=== PATIENT | female | born 1965 | race Caucasian/White ===

== ENCOUNTER 2018-03-24 06:02 | Inpatient (IN) | payer BC ==
[2018-03-22 11:47] VITALS: BMI 31.6
[2018-03-24] MEDS ORDERED: oxyCODONE HCL 10 MG SUSTAINED ACTING TABLET PO STA (06:29)
[2018-03-24] MEDS ORDERED: CEFAZOLIN 2 GM in DEXTROSE 5%-WATER - 100 ML IVPB ONE (06:29)
[2018-03-24] MEDS ORDERED: LIDOCAINE 1%/EPI 1:100000 (20 ML MULTI DOSE VIAL) ONE (06:50)
[2018-03-24] MEDS ORDERED: THROMBIN (BOVINE) 5,000 UNIT VIAL TP ONE ×3 (07:00→09:15)
[2018-03-24] MEDS ORDERED: GABAPENTIN 300 MG CAPSULE (FP) PO ONE (07:00)
--- NOTE | 2018-03-24 07:14 | HP ---
History & Physical Update - History History: No Change - Physical Physical: No Change - Assessment Assessment: No Change - Plan Plan: No Change (Initial H&P is in her paper chart. No new medications or complaints. Here today for elective L5/S1 TLIF.)
[2018-03-24] MEDS ORDERED: PROPOFOL 20 ML ONE (07:38)
[2018-03-24] MEDS ORDERED: SUCCINYLCHOLINE CHLORIDE 200 MG/10 ML VIAL ONE (07:38)
[2018-03-24] MEDS ORDERED: ONDANSETRON 4 MG/2 ML VIAL ONE (07:54)
[2018-03-24] MEDS ORDERED: DEXAMETHASONE SOD PHOSPHATE 4 MG/1 ML VIAL ONE ×2 (07:54→12:04)
[2018-03-24] MEDS ORDERED: ONDANSETRON 4 MG/2 ML VIAL IVPUSH PRN ×2 (09:45→09:53)
[2018-03-24] MEDS ORDERED: oxyCODONE HCL 5 MG TABLET PO PRN ×4 (09:45→09:53)
[2018-03-24] MEDS ORDERED: LACTATED RINGERS SOLUTION 1,000 ML IV SCH (09:45)
[2018-03-24] MEDS ORDERED: ACETAMINOPHEN 1000 MG/100 ML VIAL (NON FORMULARY) IVPB PRN (09:45)
[2018-03-24] MEDS ORDERED: ACETAMINOPHEN 325 MG TABLET (FP) PO SCH (09:45)
[2018-03-24] MEDS ORDERED: DICLOFENAC POTASSIUM PO PRN (09:49)
[2018-03-24] MEDS ORDERED: PROMETHAZINE HCL 25 MG/1 ML VIAL IVPUSH PRN (09:53)
--- NOTE | 2018-03-24 09:57 | OP ---
Operative Note - Note: Operative Date: 03/24/18 Pre-Operative Diagnosis: L5/S1 spondylolithesis with radiculopathy Operation: L5/S1 TLIF Post-Operative Diagnosis: Same as Pre-op Surgeon: Atilio Carias Soda Fountain Manager: Pieter Wood Anesthesiologist/FLAT BED KNITTER: Kristin Puentes Anesthesia: Spinal Estimated Blood Loss (mls): 25 Fluid Volume Replaced (mls): 550 Operative Report Dictated: Yes
[2018-03-24] MEDS ORDERED: FOLIC ACID 1 MG TABLET (FP) PO SCH (10:00)
[2018-03-24] MEDS ORDERED: MECLIZINE HCL 25 MG TABLET (FP) PO SCH (10:00)
[2018-03-24] MEDS ORDERED: GABAPENTIN 300 MG CAPSULE (FP) PO SCH ×2 (10:00→18:00)
[2018-03-24] MEDS ORDERED: CYANOCOBALAMIN (VITAMIN B-12) 100 MCG TABLET PO SCH (10:00)
--- NOTE | 2018-03-24 10:00 | SURG ---
Surgery Communications Representative Note Communications Representative: Pieter Wood PA-C Date of Service: 03/24/18 Diagnosis: L5/S1 spondylolithesis with radiculopathy Procedure: Posterior lumbar decompression / fusion/instrumentation / transforaminal lumbar interbody fusion L5/S1 with allograft implant under neuromonitoring I was present for the entirety of the operative procedure. For further detail, please refer to operative report. Visit type - Case Type Case Type: Scheduled - New patient This patient is new to me today: Yes Date on this admission: 03/24/18
[2018-03-24] MEDS ORDERED: traMADol HCL 50 MG TABLET PO ONE ×2 (10:10)
[2018-03-24] MEDS ORDERED: traMADol HCL 50 MG TABLET ONE (10:18)
[2018-03-24] MEDS ORDERED: oxyCODONE HCL 5 MG TABLET ONE ×2 (11:25→15:01)
--- NOTE | 2018-03-24 11:43 | OP ---
DATE OF OPERATION: 03/24/2018 PREOPERATIVE DIAGNOSIS: Spinal stenosis, L5-S1. POSTOPERATIVE DIAGNOSIS: Spinal stenosis, L5-S1. PROCEDURE PERFORMED: 1. Transforaminal lumbar interbody fusion, L5-S1. 2. Revision laminectomy, L5-S1. 3. Placement instrumentation, L5-S1. 4. Placement of prosthetic cage. SURGEON: Atilio Carias MD WHEEL BLOCKER: ZEKE Sullivan ESTIMATED BLOOD LOSS: 50 mL. INTRAVENOUS FLUIDS: Per Anesthesia. COMPLICATIONS: There were none. DISPOSITION: Patient brought to the PACU in stable condition. ANESTHESIA: Spinal/TLIP. INDICATION FOR SURGERY: Patient is a 52-year-old female who has been suffering from pain from back down to her legs. She had previously undergone a laminectomy and did well with that until recently when she began to have pain from her back down her legs. She had gone through an exhaustive course of treatment for this which included medications, physical therapy, as well as injections. Unfortunately, her pain continued to persist despite all this. At this point, risks, benefits, and alternatives were discussed, and the patient consented to surgery. DESCRIPTION OF PROCEDURE: Patient was brought to the operating room by the Anesthesia staff after appropriate patient identification was performed. Spinal anesthesia was given along with a TLIP block. The patient was able to position herself prone onto the OR table with all areas of bony prominences well padded at this time. The C-arm was brought in, and the L5-S1 pedicle was marked off. Ten mL of lidocaine with epinephrine was injected into her back at this time. Her back was prepped and draped in a sterile manner. At this point, timeout was completed. An incisions were made bilaterally with L5-S1 pedicles. Dissection was carried down to the fascia, and the fascia was split open at this time. Under C-arm guidance, trocars were advanced about the L5-S1 pedicles. Through the trocar, a wire was inserted. Over the wire, TAP was performed, and screws were inserted. On the left hand side, retractor blades were set up to expose the L5-S1 facet joint. This was confirmed with x-ray. A bur was used to remove the facet joint. The disk was entered using a series of pituitaries, Kerrisons, and curettes and diskectomy was completed. Endplates were decorticated. Bone graft was laid down. A cage full of bone graft was placed, and tulip heads were placed over the screws. A abilio was measured and placed in the capsule and caps were placed on. Compression and final tightening was performed. On the right hand side, a abilio was measured and placed in the capsule and caps and compression, and final tightening was performed. All extra instrumentation was removed at this time. AP and lateral x-rays confirmed the instrumentation to be in good position. The fascia was closed with a number 1 Vicryl suture. Subcutaneous tissue was closed with 2-0 Vicryl suture. Skin was closed with 3-0 Monocryl suture. Dermabond was applied. Steri-Strips were applied. Sterile dressing was applied. Patient was placed supine on the OR bed and brought to the PACU in stable condition. Neuromonitoring was stable throughout the operative course. Cem FOSTER/[id number] MTDD
[2018-03-24] MEDS: oxyCODONE HCL 5 MG TABLET ONE ×2 (12:20→15:05)
[2018-03-24] MEDS ORDERED: METHOCARBAMOL 500 MG TABLET PO SCH (14:00)
[2018-03-24] MEDS ORDERED: CEFAZOLIN 2 GM/D5W 2 GM/50 ML ML IVPB ONE (16:00)
[2018-03-24 16:12] VITALS: BP 121/78; PULSE 66; TEMP 98
[2018-03-24] MEDS ORDERED: diazePAM 2 MG TABLET PO SCH (22:00)
[2018-03-24] MEDS ORDERED: TIZANIDINE HCL 4 MG TABLET PO SCH (22:00)
== END 2018-03-24 16:00 | disposition home or self-care (01) | DRG 455 ==
LOC: FM/S 06:02
PROVIDERS: ADMIT Orthopaedic Surgery Orthopaedic Surgery of the Spine; ATTEND Orthopaedic Surgery Orthopaedic Surgery of the Spine
PROC: 0SG30AJ Fusion of Lumbosacral Joint with Interbody Fusion Device, Posterior Approach, Anterior Column, Open Approach (ICD-10-PCS; 2018-03-24)
PROC: 0QB00ZZ Excision of Lumbar Vertebra, Open Approach (ICD-10-PCS; 2018-03-24)
PROC: 0SG30K1 Fusion of Lumbosacral Joint with Nonautologous Tissue Substitute, Posterior Approach, Posterior Column, Open Approach (ICD-10-PCS; principal; 2018-03-24 08:16)
DX: M48.07 Spinal stenosis, lumbosacral region (principal); M43.17 Spondylolisthesis, lumbosacral region; M54.10 Radiculopathy, site unspecified
CPT/HCPCS: 72100-TC-FY; 94760; 97116-GP; 97161-GP